=== PATIENT | male | born 1950 | race Caucasian/White ===

== ENCOUNTER 2017-01-17 06:23 | Day surgery (SDC) | payer OTHER ==
[~2017-01-17 06:23] MED LIST: IV START KIT ONE; LACTATED RINGERS 1,000 ML ONE
[2017-01-17] MEDS ORDERED: PROPOFOL 40 ML IV ONE (06:42)
[2017-01-17] MEDS ORDERED: LIDOCAINE 2% (PRES FREE) 5 ML VIAL ONE (06:42)
[2017-01-17] MEDS ORDERED: LACTATED RINGERS 1,000 ML IV SCH (07:00)
--- NOTE | 2017-01-21 09:40 | SURGPATH ---
[facility] [address] [place] [id number] Patient Name: CHELO LIM MR#: [id number] : 1950 Gender: M Specimen #: [id number] Collected: 01/17/2017 Received: 01/18/2017 Reported: 01/21/2017 Submitting Phys: EMERY SALAS Copy To Phys: [facility] SEBAST[facility] Clinical History / Pre-Operative Diagnosis: HISTORY OF COLON POLYPS; FAMILY HISTORY OF COLON CA Specimen Source / Surgical Procedure Performed: SPLENIC FLEXURE POLYP Interpretation: SPLENIC FLEXURE POLYP, BIOPSY: - HYPERPLASTIC POLYP Electronically Signed Out Arnaldo Disla M.D. Gross Description: The specimen is received in a formalin filled container labeled with the patient's name and "splenic flexure polyp". A polypoid corrigan biopsy is 0.3 cm. Totally embedded in one cassette. Viraj Vargas PMary JoAMary Jo Microscopic Description: The sections show colonic mucosa exhibiting hyperplastic changes without adenomatous features. 1: 49311 D12.3
== END 2017-01-17 07:56 | disposition home or self-care (01) ==
LOC: SDC 06:23
PROVIDERS: ATTEND Internal Medicine Gastroenterology
PROC: 0DBL8ZX Excision of Transverse Colon, Via Natural or Artificial Opening Endoscopic, Diagnostic (ICD-10-PCS; principal; 2017-01-17)
DX: Z12.11 Encounter for screening for malignant neoplasm of colon (principal); K63.5 Polyp of colon; K57.30 Diverticulosis of large intestine without perforation or abscess without bleeding; I10 Essential (primary) hypertension; E78.5 Hyperlipidemia, unspecified; G47.33 Obstructive sleep apnea (adult) (pediatric); F31.9 Bipolar disorder, unspecified; Z86.010 Personal history of colon polyps; Z79.82 Long term (current) use of aspirin; Z87.891 Personal history of nicotine dependence
CPT/HCPCS: 45385; J7120